=== PATIENT | male | born 1995 | race Caucasian/White ===

== ENCOUNTER 2016-08-06 22:41 | Observation (INO) | payer OTHER ==
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
[2016-08-06] MEDS ORDERED: fentaNYL 100 MCG/2 ML INJ ONE ×2 (22:53)
[2016-08-06] MEDS ORDERED: fentaNYL 100 MCG/2 ML INJ IVP ONE (22:57)
[2016-08-06] MEDS ORDERED: ceFAZolin 2 GM/DEXTROSE 100 ML IV ONE (22:57)
[2016-08-06] MEDS ORDERED: NS 1,000 ML IV ONE (22:57)
[2016-08-06] MEDS ORDERED: ONDANSETRON 4 MG/2 ML VIAL IVP ONE (22:57)
[2016-08-06] MEDS ORDERED: LORazepam 2 MG/ML INJ ONE (23:05)
[2016-08-06 23:07] LABS: % IMMATURE GRANULYOCYTES 0.5 % (0.0-1.1); ABSOLUTE IMMATURE GRANULOCYTES 0.05 10^3/uL (0.00-0.10); ADD DIFF? NO; ADD MORPH? NO; ADD SCAN? NO; ATYPICAL LYMPHOCYTE FLAG 30 (0-99); FRAGMENT RBC FLAG 0 (0-99); HEMATOCRIT 44.3 % (40.0-51.0); HEMOGLOBIN 15.6 g/dL (13.7-17.5); LEFT SHIFT FLG 0 (0-99); LIPEMIA HEMOLYSIS FLAG 90 (0-99); MEAN CELL HEMOGLOBIN 30.1 pg (27.9-34.1); MEAN CELL HEMOGLOBIN CONCENTR. 35.2 g/dL (32.4-36.7); MEAN CELL VOLUME 85.5 fL (81.5-99.8); MEAN PLATELET VOLUME 8.5 fL (8.7-11.7); PLATELET CLUMPS FLAG 0 (0-99); PLATELET COUNT 331 10^3/uL (150-400); RED BLOOD CELL COUNT 5.18 10^6/uL (4.40-6.38); RED CELL DISTRIBUTION WIDTH 12.3 % (11.5-15.2)
[2016-08-06] MEDS ORDERED: LORazepam 2 MG/ML INJ IVP ONE (23:07)
[2016-08-06 23:17] LABS: ANION GAP 18 mEq/L (8-16); CALCIUM 10.2 mg/dL (8.5-10.4); CARBON DIOXIDE 20 mEq/l (22-31); CHLORIDE 106 mEq/L (97-110); ETHANOL SERUM 214 mg/dL (0-10); GLOMERULAR FILTRATION RATE > 60; GLUCOSE 102 mg/dL (70-100); POTASSIUM 4.2 mEq/L (3.5-5.2); SODIUM 144 mEq/L (134-144)
[2016-08-06] MEDS ORDERED: HYDROmorphONE/DILAUDID 1 MG/ML SYR IVP ONE (23:25)
[2016-08-06] MEDS ORDERED: HYDROmorphONE/DILAUDID 1 MG/ML SYR ONE (23:37)
[2016-08-07] MEDS ORDERED: IOPAMIDOL (ISOVUE-300) 100 ML BTL IV ONE (00:01)
[2016-08-07] MEDS ORDERED: AMPICILLIN/SULBACTAM 3 GM in NS 100 ML IV ONE (00:02)
[2016-08-07] MEDS ORDERED: HYDROmorphONE/DILAUDID 1 MG/ML SYR ONE (00:12)
[2016-08-07] MEDS ORDERED: HYDROmorphONE/DILAUDID 1 MG/ML SYR IVP ONE (00:15)
[2016-08-07] MEDS ORDERED: ONDANSETRON 4 MG/2 ML VIAL IVP PRN (00:31)
[2016-08-07] MEDS ORDERED: DIAZEPAM 5 MG TAB PO PRN (00:31)
[2016-08-07] MEDS ORDERED: NS 1,000 ML IV SCH (00:45)
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
[2016-08-07] MEDS: HYDROmorphONE/DILAUDID 1 MG/ML SYR IVP PRN ×3 (02:40→07:25)
[2016-08-07] MEDS: DIAZEPAM 10 MG/2 ML SYR IVP PRN ×3 (02:42→13:47)
[2016-08-07] MEDS: PANTOPRAZOLE SODIUM 40 MG in NS 100 ML IV SCH ×2 (03:22→09:17)
[2016-08-07] MEDS: KETOROLAC 30 MG/1 ML SDV IVP SCH ×3 (05:28→20:08)
[2016-08-07] MEDS: ACETAMINOPHEN 500 MG TAB PO SCH ×3 (05:28→13:15)
[2016-08-07] MEDS ORDERED: BUPIVACAINE/EPI 0.5% 30 ML SDV ONE (06:06)
[2016-08-07] MEDS ORDERED: AMPICILLIN/SULBACTAM 3 GM in NS 50 ML IV SCH (08:00)
[2016-08-07] MEDS: AMPICILLIN/SULBACTAM 3 GM in NS 100 ML IV SCH ×3 (08:10→20:07)
--- NOTE | 2016-08-07 08:40 | TRAUMAPN ---
Assessment/Plan: 08/07/2016 Assessment: No new complaints CT Chest, abdomen and pelvis do not show any acute injury C-spine cleared Plan: surgery for mandibular fracture this morning Subjective: C/o jaw pain No new information as to events of last evening Objective: Vital Signs Temp Pulse Resp BP Pulse Ox 36.9 C 77 16 157/82 H 96 08/07/16 07:47 08/07/16 07:47 08/07/16 07:47 08/07/16 07:47 08/07/16 07:47 08/06/16 08/07/16 08/08/16 05:59 05:59 05:59 Intake Total 1000 100 Output Total 400 Balance 600 100 - C-Spine Clearance Cervical Spine Cleared: Yes Provider who Cleared Cervical Spine: Saurav Time Cervical Spine was Cleared: 08:30 Physical Exam - Physical Exam General Appearance: alert, moderate distress EENT: other (jaw with obvious fracture anteriorly at right parasymphsis area ( as well as at left ramus)) Neck: non-tender, full range of motion, supple, normal inspection Respiratory: chest non-tender, lungs clear, normal breath sounds Cardiac/Chest: regular rate, rhythm Neuro/Psych: no motor/sensory deficits, alert, normal mood/affect, oriented x 3 (15)
[2016-08-07] MEDS ORDERED: MIDAZOLAM 2 MG/2 ML VIAL ONE ×3 (09:52→13:18)
[2016-08-07] MEDS ORDERED: PROPOFOL 200 MG/20 ML VIAL ONE (09:58)
[2016-08-07] MEDS ORDERED: fentaNYL 250 MCG/5 ML INJ ONE (09:58)
[2016-08-07] MEDS ORDERED: LIDOCAINE 2% 100 MG/5 ML SYR ONE (09:59)
[2016-08-07] MEDS ORDERED: GLYCOPYRROLATE 0.2 MG/1 ML VIAL ONE (09:59)
[2016-08-07] MEDS ORDERED: SUGAMMADEX SODIUM 200 MG/2 ML VIAL IVP ONE (11:58)
[2016-08-07] MEDS ORDERED: morphINE 10 MG/0.5 ML UDSYR PO PRN (12:42)
--- NOTE | 2016-08-07 12:46 | POSTOPPROG ---
Post Op Note Date of Operation: 08/07/16 Surgeon: Christin Nelson Medical Assistant Secretary: none Anesthesiologist: Diego Nathan Anesthesia: GET(General Endotracheal) Pre-op Diagnosis: mandibular symphyseal and left ramus fracture Post-op Diagnosis: same Indication: malocclusion Procedure: ORIF of mandibular symphyseal fx, MMF of left ramus fx Findings: good reduction of fx segments, occlusion stable and reproducible Inf/Abcess present in the surg proc area at time of surgery?: No Depth: Deep Incisional (Fascial) EBL: Minimal Total fluids administered: see anesthesia record Complications: none Specimen(s): none
[2016-08-07] MEDS ORDERED: fentaNYL 100 MCG/2 ML INJ ONE (12:48)
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
[2016-08-07] MEDS ORDERED: ACETAMINOPHEN 650 MG/20.3 ML UDCUP PO PRN (17:47)
[2016-08-07] MEDS: CHLORHEXIDINE GLUCONATE 15 ML UDL PO SCH ×2 (17:54→20:07)
[2016-08-07] MEDS ORDERED: *PHM DO NOT USE-LORazepam 1 MG/ML IV NEWBORN SYR IV SCH (18:30)
[2016-08-07] MEDS ORDERED: HYDROmorphONE/DILAUDID 1 MG/ML SYR IVP PRN (18:31)
--- NOTE | 2016-08-07 18:38 | SOAPPROG ---
SOAP Progress Note Assessment/Plan: Assessment: 20 y M s/p ORIF of mandibular symphyseal fx, MMF L ramus fx, surgical site stable. Discussed pain regimen with stepfather and mother, given that stepfather is an anesthesiologist who specializes in pain management, consensus reached on new pain regimen. Plan: -1 mg lorazepam q6h -scheduled 30 mg toradol q6h, 650 mg tylenol q6h, 10 mg morphine q4h -1 mg dilaudid q4h breakthrough only -continue pureed diet -continue unasyn -wire cutters at bedside -plan for d/c tomorrow 08/07/16 18:33 Subjective: pain reported 02/07, otherwise nursing staff reports that pt has been tolerating PO intake, fell asleep this afternoon Objective: Vital Signs Temp Pulse Resp BP Pulse Ox 35.9 C L 85 18 133/80 H 96 08/07/16 15:52 08/07/16 15:52 08/07/16 15:52 08/07/16 15:52 08/07/16 15:52 08/06/16 08/07/16 08/08/16 05:59 05:59 05:59 Intake Total 1000 2800 Output Total 400 5 Balance 600 2795 mild lower facial edema as expected, CN II-XII grossly intact except R V3 hypoesthesia, MMF stable ICD10 Worksheet Patient Problems: Problems Problem Status Onset Jaw fracture Acute Appendicitis Acute Hypoxia Acute Pneumonia Acute
[2016-08-07] MEDS ORDERED: HYDROmorphONE/DILAUDID 2 MG TAB PO PRN (18:40)
[2016-08-07] MEDS ORDERED: LORazepam 2 MG/ML INJ ONE (18:58)
[2016-08-07] MEDS: ACETAMINOPHEN 650 MG/20.3 ML UDCUP PO SCH (18:59)
[2016-08-07] MEDS: morphINE 10 MG/0.5 ML UDSYR PO SCH ×2 (20:08→22:35)
[2016-08-08] MEDS ORDERED: LORazepam 2 MG/ML INJ IVP SCH
[2016-08-08] MEDS: KETOROLAC 30 MG/1 ML SDV IVP SCH ×3 (00:05→12:04)
[2016-08-08] MEDS: ACETAMINOPHEN 650 MG/20.3 ML UDCUP PO SCH ×3 (00:05→12:00)
[2016-08-08] MEDS: LORazepam 2 MG/ML INJ IVP SCH ×3 (00:06→12:02)
[2016-08-08] MEDS: AMPICILLIN/SULBACTAM 3 GM in NS 100 ML IV SCH ×3 (02:29→13:56)
[2016-08-08] MEDS: morphINE 10 MG/0.5 ML UDSYR PO SCH ×3 (02:29→10:01)
[2016-08-08] MEDS ORDERED: HYDROmorphONE/DILAUDID 2 MG TAB ONE (08:11)
--- NOTE | 2016-08-08 08:14 | SOAPPROG ---
SOAP Progress Note Assessment/Plan: Assessment: 20 y M s/p ORIF of mandibular symphyseal fx, MMF L ramus fx, POD 1, surgical site stable. Pain regimen modified yesterday with improvement in symptoms, will adjust accordingly. Plan: -continue 1 mg lorazepam q6h -continue scheduled 30 mg toradol q6h, 650 mg tylenol q6h, 10 mg morphine q4h -will change 1 mg dilaudid q4h prn to scheduled, discussed with nursing staff to crush tab, given MMF -continue pureed diet -continue unasyn -continue periogard rinse bid -wire cutters at bedside -plan for d/c once pain regimen finalized 08/08/16 08:18 Subjective: pt states that scheduled ativan and morphine helps greatly with jaw discomfort, tylenol and toradol helps with neck soreness, dilaudid not crushed appropriately and did not seem to help with symptoms, able to tolerate PO intake Objective: Vital Signs Temp Pulse Resp BP Pulse Ox 36.3 C 59 L 12 99/46 L 93 08/08/16 03:21 08/08/16 03:21 08/08/16 03:21 08/08/16 03:21 08/08/16 03:21 08/07/16 08/08/16 08/09/16 05:59 05:59 05:59 Intake Total 1000 3200 Output Total 400 5 Balance 600 3195 mild increase in lower facial edema, as expected post-op, occlusion stable and unchanged ICD10 Worksheet Patient Problems: Problems Problem Status Onset Jaw fracture Acute Appendicitis Acute Hypoxia Acute Pneumonia Acute
[2016-08-08] MEDS: HYDROmorphONE/DILAUDID 2 MG TAB PO SCH ×2 (08:15→11:06)
[2016-08-08] MEDS: CHLORHEXIDINE GLUCONATE 15 ML UDL PO SCH (08:18)
[2016-08-08 08:28] VITALS: BP 127/82; PULSE 75; RESP 16; TEMP 96.8; O2SAT 96
[2016-08-08] MEDS: PANTOPRAZOLE SODIUM 40 MG in NS 100 ML IV SCH (09:26)
[2016-08-08] MEDS ORDERED: morphINE 10 MG/0.5 ML UDSYR PO SCH ×2 (10:41)
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
== END 2016-08-08 15:36 | disposition home or self-care (01) ==
LOC: INTOOBSV 08-07 00:26 → F3N 08-07 01:57
PROVIDERS: ADMIT Dentist Oral and Maxillofacial Surgery; ATTEND Dentist Oral and Maxillofacial Surgery
PROC: 0NSV04Z Reposition Left Mandible with Internal Fixation Device, Open Approach (ICD-10-PCS; principal; 2016-08-07 10:00)
PROC: 2W31X9Z Immobilization of Face using Wire (ICD-10-PCS; principal; 2016-08-07 10:00)
DX: S02.642B Fracture of ramus of left mandible, initial encounter for open fracture (principal); S02.66XB Fracture of symphysis of mandible, initial encounter for open fracture; F10.129 Alcohol abuse with intoxication, unspecified; W10.9XXA Fall (on) (from) unspecified stairs and steps, initial encounter; Y04.0XXA Assault by unarmed brawl or fight, initial encounter; Y01.XXXA Assault by pushing from high place, initial encounter; Y92.320 Baseball field as the place of occurrence of the external cause
CPT/HCPCS: 21470; 70450; 70486; 71010; 71260; 72125; 74177; 96361; 96374; 96375; 99285; G0378; C1713; G0480; J0295; J0690; J1170; J1885; J2001; J2060; J2250; J2704; J3010; L0172; Q9967

== ENCOUNTER 2016-08-11 09:12 | Emergency (ER) | payer OTHER ==
--- NOTE | 2016-08-11 09:43 | EDPHY ---
HPI/HX/ROS/PE/MDM Narrative: CHIEF COMPLAINT: Fever, sore throat. HPI: The patient is a 20-year-old male status post mandible fracture repair [address] Nelson who presents with fever that began yesterday. 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 His jaw is wired shut and he has been on a liquid-only diet. He has been compliant with his antibiotics. He denies vomiting, diarrhea, or other complaints. REVIEW OF SYSTEMS: Aside from elements discussed in the HPI, a comprehensive 10-point review of systems was reviewed and is negative. PMH: Jaw surgery, hand surgery, pneumonia. SOCIAL HISTORY: [employer] Student. PHYSICAL EXAM: General: Patient is alert, in no acute distress. ENT: Eyes are normal to inspection. ENT inspection normal. Neck: Normal inspection. Full range of motion. Respiratory: No respiratory distress. Breath sounds normal bilaterally. Cardiovascular: Regular rate and rhythm. Strong peripheral pulses. Abdomen: The abdomen is nontender to palpation. There are no peritoneal signs. There are normal bowel sounds. Back: Normal to inspection. No tenderness to palpation. Skin: Normal color. No rash. Warm and dry. Extremities: Normal appearance. Full range of motion. Neuro: Oriented x3. Normal motor function. Normal sensory function. Portions of this note were transcribed by an ED scribe. I personally performed the history, physical exam, and medical decision making; and confirm the accuracy of the information in the transcribed note. ED Course: 20-year-old male status post mandible fracture repair 4 days ago presents with fever since yesterday. He has associated sore throat but does have a history of recurrent strep C. He has no other complaints at this time. It is difficult to perform a pharyngeal exam as his jaw is wired shut. He has been taking his antibiotics as prescribed. An IV was established and labs ordered. Chest x-ray ordered. 1L IV saline administered along with 1gm IV Ceftriaxone. I reviewed the patient's laboratory studies. WBC elevated at 14.54. I independently reviewed the patient's chest x-ray on the PACS system. My interpretation: left lower lobe pneumonia. Please see Imaging section for radiologist report. I discussed these results with the patient. I offered chest CT to further elucidate the pneumonia but they declined. He will be discharged with antibiotics. - Data Points Imaging Results: Imaging Impressions Chest X-Ray 08/11/16 10:17 Impression: Subtle lower lobe infiltrate side indeterminate. CT might be helpful , if clinically indicated. Laboratory Results: Laboratory Results 08/11/16 10:05 08/11/16 10:05 08/11/16 08/11/16 10:05 10:05 WBC 14.54 10^3/uL H 10^3/uL (3.80-9.50) RBC 5.25 10^6/uL 10^6/uL (4.40-6.38) Hgb 16.1 g/dL g/dL (13.7-17.5) Hct 46.9 % % (40.0-51.0) MCV 89.3 fL fL (81.5-99.8) MCH 30.7 pg pg (27.9-34.1) MCHC 34.3 g/dL g/dL (32.4-36.7) RDW 12.1 % % (11.5-15.2) Plt Count 267 10^3/uL 10^3/uL (150-400) MPV 8.6 fL L fL (8.7-11.7) Neut % (Auto) 79.9 % H % (39.3-74.2) Lymph % (Auto) 9.3 % L % (15.0-45.0) [place] % (Auto) 9.7 % % (4.5-13.0) Eos % (Auto) 0.5 % L % (0.6-7.6) Baso % (Auto) 0.2 % L % (0.3-1.7) Nucleat RBC Rel Count 0.0 % % (0.0-0.2) Absolute Neuts (auto) 11.62 10^3/uL H 10^3/uL (1.70-6.50) Absolute Lymphs (auto) 1.35 10^3/uL 10^3/uL (1.00-3.00) Absolute Monos (auto) 1.41 10^3/uL H 10^3/uL (0.30-0.80) Absolute Eos (auto) 0.07 10^3/uL 10^3/uL (0.03-0.40) Absolute Basos (auto) 0.03 10^3/uL 10^3/uL (0.02-0.10) Absolute Nucleated RBC 0.00 10^3/uL 10^3/uL (0-0.01) Immature Gran % 0.4 % % (0.0-1.1) Immature Gran # 0.06 10^3/uL 10^3/uL (0.00-0.10) Sodium 139 mEq/L mEq/L (134-144) Potassium 4.9 mEq/L mEq/L (3.5-5.2) Chloride 100 mEq/L mEq/L (97-110) Carbon Dioxide 27 mEq/l mEq/l (22-31) Anion Gap 12 mEq/L mEq/L (8-16) BUN 9 mg/dL mg/dL (7-23) Creatinine 0.9 mg/dL mg/dL (0.7-1.3) Estimated GFR > 60 Glucose 89 mg/dL mg/dL (70-100) Calcium 9.9 mg/dL mg/dL (8.5-10.4) Medications Given: Discontinued Medications Acetaminophen (Tylenol 650/20.3ml Oral Liquid) 1,000 mg PO EDNOW ONE Stop: 08/11/16 11:11 Last Admin: 08/11/16 11:10 Dose: 1,000 mg Sodium Chloride (Ns) 1,000 mls @ 0 mls/hr IV ONCE ONE PRN Reason: Wide Open Stop: 08/11/16 10:18 Last Admin: 08/11/16 10:26 Dose: 1,000 mls Ceftriaxone Sodium/Dextrose (Rocephin 1 Gm (Premix)) 50 mls @ 100 mls/hr IV EDNOW ONE PRN Reason: Protocol Stop: 08/11/16 11:23 Last Admin: 08/11/16 11:05 Dose: 50 mls General Time Seen by Provider: 08/11/16 09:42 Initial Vital Signs: Initial Vital Signs Temperature (C) 36.8 C 08/11/16 09:17 Heart Rate 95 08/11/16 09:17 Respiratory Rate 18 08/11/16 09:17 Blood Pressure 131/67 H 08/11/16 09:17 O2 Sat (%) 97 08/11/16 09:17 O2 Delivery Mode Room Air Allergies/Adverse Reactions: prednisone Allergy (Severe, Verified 08/11/16 09:16) Other-Enter Comments Home Medications: Medication Instructions Recorded Amoxicillin [Amoxil Susp (*)] 500 mg PO Q8H #175 ml 08/08/16 Chlorhexidine Gluconate 15 ml BID #473 mouthwash 08/08/16 LORazepam [Lorazepam Intensol] 1 mg PO Q6H PRN #20 ml 08/08/16 morphINE [Roxanol 10 mg/0.5 ml 15 mg PO Q4H PRN #45 ml MDD 4.5 ml 08/08/16 oral soln (*)] Azithromycin Oral Liquid 250 mg PO DAILY 5 Days 08/11/16 [Zithromax Oral Liquid] Departure - Departure Disposition: Home, Routine, Self-Care Clinical Impression: Pneumonia Qualifiers: Pneumonia type: due to unspecified organism Laterality: left Lung location: lower lobe of lung Qualified Code(s): J18.1 - Lobar pneumonia, unspecified organism Condition: Good Instructions: Pneumonia (ED) Additional Instructions: Take the antibiotic as prescribed. Return to the emergency department if you experience any serious worsening of condition. Referrals: [facility] [Clinic] - As per Instructions Stand Alone Forms: Statement of Treatment Prescriptions: Azithromycin Oral Liquid [Zithromax Oral Liquid] 250 mg PO DAILY 5 Days Report Scribed for: Beto Bautista Report Scribed by: Tien Peng Date of Report: 08/11/16 Time of Report: 10:06
[2016-08-11] MEDS ORDERED: NS 1,000 ML IV ONE (10:17)
[2016-08-11 10:24] LABS: % IMMATURE GRANULYOCYTES 0.4 % (0.0-1.1); ABSOLUTE IMMATURE GRANULOCYTES 0.06 10^3/uL (0.00-0.10); ADD DIFF? NO; ADD MORPH? NO; ADD SCAN? NO; ATYPICAL LYMPHOCYTE FLAG 0 (0-99); FRAGMENT RBC FLAG 0 (0-99); HEMATOCRIT 46.9 % (40.0-51.0); HEMOGLOBIN 16.1 g/dL (13.7-17.5); LEFT SHIFT FLG 10 (0-99); LIPEMIA HEMOLYSIS FLAG 90 (0-99); MEAN CELL HEMOGLOBIN 30.7 pg (27.9-34.1); MEAN CELL HEMOGLOBIN CONCENTR. 34.3 g/dL (32.4-36.7); MEAN CELL VOLUME 89.3 fL (81.5-99.8); MEAN PLATELET VOLUME 8.6 fL (8.7-11.7); PLATELET CLUMPS FLAG 20 (0-99); PLATELET COUNT 267 10^3/uL (150-400); RED BLOOD CELL COUNT 5.25 10^6/uL (4.40-6.38); RED CELL DISTRIBUTION WIDTH 12.1 % (11.5-15.2)
[2016-08-11 10:40] LABS: ANION GAP 12 mEq/L (8-16); CALCIUM 9.9 mg/dL (8.5-10.4); CARBON DIOXIDE 27 mEq/l (22-31); CHLORIDE 100 mEq/L (97-110); CREATININE 0.9 mg/dL (0.7-1.3); GLOMERULAR FILTRATION RATE > 60; GLUCOSE 89 mg/dL (70-100); POTASSIUM 4.9 mEq/L (3.5-5.2); SODIUM 139 mEq/L (134-144)
[2016-08-11] MEDS ORDERED: ACETAMINOPHEN 650 MG/20.3 ML UDCUP PO PRN (11:05)
[2016-08-11] MEDS ORDERED: ACETAMINOPHEN 650 MG/20.3 ML UDCUP PO ONE (11:10)
[2016-08-11 11:23] VITALS: BP 136/70; PULSE 89; RESP 16; TEMP 99.1; O2SAT 96
== END 2016-08-11 11:37 | disposition home or self-care (01) ==
DX: J18.9 Pneumonia, unspecified organism (principal)
CPT/HCPCS: 96365; J0696

== ENCOUNTER 2016-08-11 22:56 | Emergency (ER) | payer OTHER ==
[2016-08-11 23:11] VITALS: RESP 16
--- NOTE | 2016-08-11 23:44 | EDPHY ---
H & P Stated Complaint: fever, pain post durgery on Monday Time Seen by Provider: 08/11/16 23:22 HPI/ROS: Chief Complaint: Fever HPI: 20-year-old male who is 5 days status post mandible fracture repair presenting with 2 days of fever. Patient was seen here earlier today and diagnosed with pneumonia. He was started on azithromycin. Patient has been having continued fevers to 103-104 despite taking ibuprofen and acetaminophen. He has taken 800 mg of ibuprofen every 8 hours. Has had a slight cough but nonproductive. Also has bilateral sore throat but is able to swallow his secretions and his liquid diet medicines without difficulty. No chest pain or shortness of breath. No abdominal pain. No urinary symptoms. No nausea or vomiting. Mom is bring him back in because he has continued to have fevers despite the medications and the antibiotics he started today. ROS: 10 point Review of Systems is negative except as noted in the HPI. PMH: Mandible fracture Social History: No smoking, occasional alcohol, no recreational drug use Family History: non-contributory Physical Exam: Gen: Awake, Alert, No Distress HEENT: Nose: no rhinorrhea Eyes: PERRLA, EOMI Mouth: Moist mucosa otherwise on a able to evaluate secondary to the patient's mandible being wired shut Neck: Supple, no JVD, mild symmetric lymphadenopathy without any submandibular masses or neck masses Chest: nontender, lungs clear to auscultation Heart: S1, S2 normal, no murmur Abd: Soft, non-tender, no guarding Back: no CVA tenderness, no midline tenderness Ext: no edema, non-tender Skin: no rash Neuro: CN II-XII intact, Sensation grossly intact, Strength 5/5 in bilateral upper and lower extremities - Personal History Current Tetanus/Diphtheria Vaccine: Yes Current Tetanus Diphtheria and Acellular Pertussis (TDAP): Yes - Medical/Surgical History Hx Asthma: No Hx Chronic Respiratory Disease: No Hx Diabetes: No Hx Cardiac Disease: No Hx Renal Disease: No Hx Cirrhosis: No Hx Alcoholism: No Hx HIV/AIDS: No Hx Splenectomy or Spleen Trauma: No Other PMH: med hx-anxiety. surg-bilat hand, jaw surgery - Social History Smoking Status: Never smoked Constitutional: Initial Vital Signs Temperature (C) 38.2 C 08/11/16 23:09 Heart Rate 112 H 08/11/16 23:09 Respiratory Rate 16 04/13/17 23:09 Blood Pressure 153/90 H 08/11/16 23:09 O2 Sat (%) 92 08/11/16 23:09 O2 Delivery Mode Room Air Allergies/Adverse Reactions: prednisone Allergy (Severe, Verified 08/11/16 23:09) Other-Enter Comments Home Medications: Medication Instructions Recorded Amoxicillin [Amoxil Susp (*)] 500 mg PO Q8H #175 ml 08/08/16 Chlorhexidine Gluconate 15 ml BID #473 mouthwash 08/08/16 LORazepam [Lorazepam Intensol] 1 mg PO Q6H PRN #20 ml 08/08/16 morphINE [Roxanol 10 mg/0.5 ml 15 mg PO Q4H PRN #45 ml MDD 4.5 ml 08/08/16 oral soln (*)] Azithromycin Oral Liquid 250 mg PO DAILY 5 Days 08/11/16 [Zithromax Oral Liquid] Medical Decision Making ED Course/Re-evaluation: The patient has defervesced to 36.8 from the medications he took at home. He is otherwise very well appearing. I suspect that given his respiratory status lack of cough and the very small finding on chest x-ray earlier that his symptoms are more likely secondary to a viral process. I am unable to evaluate his oropharynx but I do not find any exterior findings or history suggesting had a large abscess. He will continue taking the azithromycin. I have suggested that they alternate ibuprofen 400 mg with acetaminophen to stabilize his antipyretics. Will follow up in several days for re-evaluation. They are asking to go home at this time. Departure - Departure Disposition: Home, Routine, Self-Care Clinical Impression: Fever Condition: Good Instructions: Fever in Adults (ED), Viral Syndrome (ED) Additional Instructions: Please take your full course of antibiotics. Alternate acetaminophen and ibuprofen every 4 hours for fever, chills, aches, pains. Try to limit your narcotic use for your pain. Return to the emergency department for persistent uncontrolled fevers, nausea, vomiting, shortness of breath, cough, or any other concerns. Referrals: NONE *PRIMARY CARE P,. [Primary Care Provider] - As per Instructions
[2016-08-11 23:46] VITALS: BP 120/59; PULSE 98; TEMP 98.2; O2SAT 93
== END 2016-08-11 23:53 | disposition home or self-care (01) ==
DX: R50.9 Fever, unspecified (principal)

== ENCOUNTER 2017-10-10 01:35 | Inpatient (IN) | payer OTHER ==
[2017-10-10] MEDS ORDERED: LORazepam 2 MG/ML INJ ONE (01:43)
[2017-10-10] MEDS ORDERED: HALOPERIDOL LACT 5 MG/ML INJ ONE (02:12)
[2017-10-10] MEDS ORDERED: IBUPROFEN 200 MG TAB PO PRN (16:45)
[2017-10-10] MEDS ORDERED: LORazepam 0.5 MG TAB PO PRN (20:10)
--- NOTE | 2017-10-10 22:31 | ASMTTCLDSP ---
TLC Discharge Disposition Disposition: Answers: Admit Was patient given the Answers: Yes Inpatient Behavioral Health Prohibited Belongings List while in the ED? For inpatient admission, the following Sammy Reddy MD psychiatrist agreed to accept patient for admission to Behavioral [facility] Type of Hold: Answers: M1/72-hour Hold Hold initiated by: Answers: Police Date Signed: 10/10/2017 03:39 PM Electronically Signed By:Suzanne Cordova
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
--- NOTE | 2017-10-11 02:53 | EDPHY ---
H & P Stated Complaint: PT TOOK HANDFUL OF PILLS, ETOH, M-1 HOLD Time Seen by Provider: 10/10/17 02:00 HPI/ROS: HPI CHIEF COMPLAINT: Alcohol intoxication, cocaine abuse, agitated behavior, M1 hold by police HISTORY OF PRESENT ILLNESS: Patient is a 22-year-old male, presents emergency room by EMS and police for acute agitation, alcohol intoxication, cocaine use and suicidal ideation. He is on M1 hold by police. Past Medical History: Unknown medical Past Surgical History: Unknown surgical history Social History: Alcohol this evening, cocaine Family History: Noncontributory ROS REVIEW OF SYSTEMS: A comprehensive 10 point review of systems is otherwise negative aside from elements mentioned in the history of present illness. Exam Constitutional agitated, triage nursing summary reviewed, vital signs reviewed , awake/alert. Eyes normal conjunctivae and sclera, EOMI, PERRLA. HENT normal inspection, atraumatic, moist mucus membranes, no epistaxis, neck supple/ no meningismus, no raccoon eyes. Respiratory clear to auscultation bilaterally, normal breath sounds, no respiratory distress, no wheezing. Cardiovascular rate normal, regular rhythm, no murmur, no edema, distal pulses normal. Gastrointestinal soft, non-tender, no rebound, no guarding, normal bowel sounds, no distension, no pulsatile mass. Genitourinary no CVA tenderness. Musculoskeletal no midline vertebral tenderness, full range of motion, no calf swelling, no tenderness of extremities, no meningismus, good pulses, neurovascularly intact. Skin pink, warm, & dry, no rash, skin atraumatic. Neurologic awake, alert and oriented x 3, AAOx3, moves all 4 extremities equally, motor intact, sensory intact, CN II-XII intact, normal cerebellar, normal vision, normal speech. Psychiatric normal mood/affect. Heme/Lymph/Immune no lymphadenopathy. Differential Diagnosis: Includes but is not limited to in a particular order acute agitation, drug intoxication, alcohol intoxication, M1 hold by police Medical Decision Making: Plan for this patient IV establishment he will need Ativan 2 mg IV for sedation given how agitated he is here in the emergency room. Additionally will check blood work drug screen. He is on M1 hold. He will need mental health evaluation after he tacho. Re-evaluation: 0512AM: Patient required 2 mg IV Ativan and 5 mg IV Haldol for sedation to control his aggressive and agitated behavior in the emergency room. Blood work has been reviewed. It is noted the patient's alcohol level was elevated. Serum alcohol 352. Patient signed over to Dr. Lainez 7am shift change, re-eval once sober. Source: Patient, EMS - Personal History Current Tetanus/Diphtheria Vaccine: Yes Current Tetanus Diphtheria and Acellular Pertussis (TDAP): Yes - Medical/Surgical History Hx Asthma: No Hx Chronic Respiratory Disease: No Hx Diabetes: No Hx Cardiac Disease: No Hx Renal Disease: No Hx Cirrhosis: No Hx Alcoholism: No Hx HIV/AIDS: No Hx Splenectomy or Spleen Trauma: No Other PMH: med hx-anxiety. surg-bilat hand, jaw surgery - Social History Smoking Status: Never smoked Constitutional: Initial Vital Signs Temperature (C) 37.0 C 10/10/17 01:35 Heart Rate 130 H 10/10/17 01:35 Respiratory Rate 18 10/10/17 01:35 Blood Pressure 122/87 H 10/10/17 01:35 O2 Sat (%) 92 10/10/17 01:35 O2 Delivery Mode Room Air Allergies/Adverse Reactions: prednisone Allergy (Severe, Verified 08/11/16 23:09) Other-Enter Comments Home Medications: Medication Instructions Recorded Amoxicillin/Clavulanate Pot 875 mg PO BID 10/10/17 [Augmentin 875 MG TAB (*)] Ibuprofen [Advil] 200 mg PO DAILY PRN 10/10/17 Departure - Departure Disposition: Home, Routine, Self-Care Clinical Impression: Alcoholic intoxication Qualifiers: Complication of substance-induced condition: uncomplicated Qualified Code(s): F10.920 - Alcohol use, unspecified with intoxication, uncomplicated Condition: Good Referrals: NONE *PRIMARY CARE P,. [Primary Care Provider] - As per Instructions
[2017-10-11 06:53] VITALS: BP 136/85
[2017-10-11] MEDS ORDERED: NICOTINE POLACRILEX 2 MG GUM B PRN (07:24)
[2017-10-11] MEDS ORDERED: MAGNESIUM HYDROXIDE 30 ML UDCUP PO PRN (07:24)
[2017-10-11] MEDS ORDERED: MAG HYDROX/AL HYDROX/SIMETH 30 ML UDCUP PO PRN (07:24)
[2017-10-11] MEDS ORDERED: ACETAMINOPHEN 325 MG TAB PO PRN (07:24)
[2017-10-11] MEDS: AMOXICILLIN/CLAVULANATE POT 875/125 MG TAB PO SCH ×2 (07:38→08:18)
--- NOTE | 2017-10-11 11:21 | ASMTBHDC ---
Notes Note: Notes: The patient has agreed to follow up and make an intake appointment with Dr. Islas once he returns home to [place], due to short stay, and CC unable to confirm discharge appointment. Date Signed: 10/11/2017 11:20 AM Electronically Signed By:Elizabeth Patterson
--- NOTE | 2017-10-11 11:23 | ASMTBHMTP ---
Master Treatment Plan Master Treatment Plan Answers: Depressed Mood with for: Suicidal Ideation Date: 10/10/2017 Diagnosis on Admission: Major Depressive Disoder, single episode, severe 296.23 (F.32.2) Expected length of stay: 10/11/2017 Reason for admission: Notes: The patient stated, "I was intoxicated, my BAL was .38, I've never had those thoughts before. I had an argument with my girlfriend and I think I was just trying to get attention." The patient denied depression, SI, HI, A/VH, reporting a 0/10. He rated himself a 2/10 for anxiety which he associated with hospitalization. Patient's stated presenting problems: Notes: The patient stated, "I had a stressful semester at ; it was the night before I was flying home to [place]. I do not have substance abuse issues, I just need to be with family and be outside rather than partying and drinking with friends." Patient's goals for treatment: Notes: The patient reported benefiting from a "structured lifestyle, starting a job," that he has lined up for the summer, "spending time with family and in the outdoors." The patient's stated goal is to discharge into his step father's, Dr. Vamshi Recio, [facility]. Patient's strengths: Notes: The patient demonstrated strong insight; he reported being "outgoing, a leader, street smart, motivated, and goal oriented." Identify supports outside of hospital: Notes: The patient is supported by his "family, friends, mentors/teachers, and his significant other." Discharge criteria: Notes: The patient was previously under the care of Dr. Islas, a family therapist, during high school and his parents divorce. Initial disposition plan/considerations: Notes: In consultation with the step father of the patient, Dr. Vamshi Recio, and the [facility] Nurse Practitioner, Eder Larios, both agreed that the patient is able to discharge home with his step father. They will be returning to [place] where the patient will seek outpatient care. Master Treatment Plan Required Signatures Psychiatrist signature: Answers: Eder Larios, DIGNAP: RN on-shift signature: Answers: RN: Patient signature: Answers: Patient: Date Signed: 10/11/2017 11:19 AM Electronically Signed By:Elizabeth Patterson
--- NOTE | 2017-10-11 12:40 | GDS ---
[f rep st] DISCHARGE SUMMARY REASON FOR ADMISSION: Per ED note dated 10/10/2017, at 0200, patient presented to the emergency room by EMS and police for acute agitation, alcohol intoxication, cocaine use, and suicidal ideation. He was on an M-1 hold by police. Patient was admitted involuntarily and is on an M-1 hold due to being a danger to self. ADMITTING DIAGNOSIS: Alcohol intoxication. ADMISSION PHYSICAL EXAM: Patient was seen in the ED on 10/10/2017. REVIEW OF SYSTEMS: A comprehensive 10-point review of systems is otherwise negative, aside from elements mentioned in the History of Present Illness. For further information regarding the assessment, please refer to the ED note dated 2017, at 0252. ADMISSION LABS: Blood work was reviewed by the ED physician. It is noted the patient's alcohol level was elevated. Serum alcohol 352. HOSPITAL COURSE: The most prominent symptoms and behaviors while the patient was here were the following: Patient presented with mild anxiety. Target symptoms during the course of the patient's hospitalization were mild anxiety. The treatment modalities utilized were as follows: Milieu and group therapy. No medications were started during the time of the patient's visit. Patient has improved considerably with no sign of psychiatric symptoms and no psychiatric symptoms expressed. Patient reports he has improved since admission , states to be in stable condition, feels safe to discharge and contract for safety. The patient's response to treatment was good. There were no adverse or unexpected results of treatment. The patient was safe throughout his stay, active in treatment, engaged in groups, and was appropriate with staff. The treatment team consensus is the patient is in stable condition and is safe to discharge today. CONDITION AT DISCHARGE: Patient is in stable condition and is no longer a danger to self or others, and is not gravely disabled due to mental illness. Patient is no longer in need of inpatient level of care, and can be safely and effectively treated within the community. The patients level of risk at time of discharge is low based on the risk assessment below following this discharge summary. MSE: The patient is casually dressed and with good hygiene, and looks stated age. Patient is sitting, posture is upright, and position is relaxed. Patient appears awake, alert, and responds appropriately and reasonably during interview. Patient is engaged, relates well to interviewer, and emotional facial expression is appropriate to situation and changes appropriately with topic. Patient is cooperative, makes comfortable eye contact, and movements are voluntary, deliberate, coordinated, and smooth and even with no inappropriate movements. Patient makes laryngeal sounds effortlessly and shares conversation appropriately; pace of conversation is appropriate, and stream of talking is fluent; articulation is clear and understandable; word choice is effortless and appropriate for education level; completes sentences, occasionally pausing to think; rate and volume are appropriate for interview and setting. Patient reports mood as euthymic. Patients affect is stable with full variable range, congruent with mood, and appropriate to speech and circumstances. Patient has linear and logical thinking, with no loose associations, tangential thought, thought blocking, concrete thinking, or any other signs of formal thought disorder. Patient denies suicidal and homicidal ideation, and denies hallucinations and delusions. Patient appears to be a reliable historian with sound judgement and good insight into current condition. Patient has no apparent dysfunction in recent or remote memory noted , and no evidence of gross cognitive dysfunction noted at any point during the interview. DISCHARGE DIAGNOSIS: Alcohol intoxication, resolved. DISCHARGE MEDICATIONS: No psychotropic medications were prescribed. No prescriptions were written at time of discharge. DISPOSITION: Patient left hospital independently and voluntarily with his stepfather and plans to return to [place] with his stepfather later this evening. Stepfather was on the unit today and patient left with stepfather. FOLLOWUP: cruise coordinator reports the appropriate outpatient follow-up services have been established and outpatient appointments have been scheduled. The patient received written instructions with times and dates of outpatient follow-up appointments. The following follow-up recommendations were provided to the patient at discharge: Continue psychotropic medications as prescribed and attend appointments as scheduled. Report any side effects to a psychiatric outpatient provider, a primary care provider, or other health child care worker. Address any questions or problems concerning the psychotropic medications with a psychiatric outpatient provider, a primary care provider, or other health child care worker. Contact [facility] or [facility], or go to the nearest emergency room, if you are ever a danger to yourself/others, or unable to care for yourself. As soon as possible, establish a routine medication management treatment with a psychiatric provider, establish routine therapy appointments, and follow-up with a primary care provider. LEGAL COURSE: Patient arrived to the unit on an M-1 hold and was hospitalized involuntarily. Patient became voluntary during stay and discharged today independently and voluntarily. ATTITUDE AT TIME OF DISCHARGE: The patient's attitude was positive at time of discharge, and patient reports looking forward to discharging today and returning home to [place] with his step dad and his mom who is in [place] at this time. The patient reports he feels safe at discharge, is no longer a danger to himself or others, is in stable condition and contracts for safety. The patient states he plans to follow up with outpatient treatment, including potentially medication management and therapy when he returns to [place]. Patient reports he understands the information that has been provided to him during his stay regarding treatment options. Patient reports internal protective factors as the coping skills he has learned while being hospitalized here, and he plans to continue to practice these coping skills after discharge. Patient reports external protective factors as his love for his family, many friends, and his overall love for life and his future. Patient describes looking forward to seeing his stepdad and being with his step dad today after discharge and returning back to [place] today with his stepdad and spending the summer break from college in [place] where he plans to work. Patient describes future plans as working this summer, goal for being more independent during the upcoming school year, and finishing college and earning his college degree. Patient reports his family and friends look forward to him discharging today, and his stepfather plans to support him by assisting him looking for resources for potential medication treatment and therapy when he returns to [place] and also looking at outpatient resources in the [place] area for the patient when the patient returns for the upcoming school year. The patient's stepdad reports he agrees with patient discharging today, feels the patient has a safe discharge plan and states the patient is safe to discharge today. PENDING LABS: There were no pending labs or studies at time of discharge. CODE STATUS: There were no advanced directives on file for patient during hospitalization, and patient was full code during hospitalization. The following psychotropic medication treatment informed consent and recommendations were provided to the patient at time of discharge. Patient reports he understands, accepts, and agrees to the information that has been provided. PSYCHOTROPIC MEDICATION TREATMENT INFORMED CONSENT and RECOMMENDATIONS: Review nature of condition, diagnosis, and prognosis. Review safety plan and the importance to contact [facility] or [facility] , or go to the nearest emergency room, if ever a danger to yourself/others, or unable to care for yourself. Recommend upon discharge to establish routine medication management treatment with a psychiatric provider, establish routine therapy appointments, and follow-up with a primary care provider. Verify patient understands, accepts, and agrees to the information that has been provided. SUICIDE ASSESSMENT FIVE-STEP EVALUATION AND TRIAGE (1) RISK FACTORS: (a) Suicidal behavior: reports no history of previous attempts and no history of SI (b) Current/past psychiatric disorders: CA (c) Chu symptoms: mild anxiety (d) Family history: none (e) Precipitants/Stressors/Interpersonal: none (f) Change in treatment: discharge from psychiatric hospital (g) Access to firearms: none (2) PROTECTIVE FACTORS: (a) Internal: coping skills (b) External: family, friends, and future (3) SUICIDAL INQUIRY: (a) Ideation: none (b) Plan: none (c) Behaviors: none (d) Intent: none (4) RISK LEVEL: Low: modifiable risk factors, strong protective factors; no self -injurious or suicidal ideation. Intervention: treatment plan to reduce symptoms: medications and therapy, provided emergency/crisis numbers, follow-up plan. Patient has very supportive family and will be returning home to [place] for summer break. Patient father plans to support patient in his ongoing treatment. /[id number]/MODL MTDD
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
[2017-10-13 19:01] LABS: PLATELET COUNT 416 10^3/uL (150-400)
== END 2017-10-11 11:40 | disposition home or self-care (01) | DRG 897 ==
LOC: BBEH 16:45
PROVIDERS: ADMIT Psychiatry & Neurology Psychiatry; ATTEND Psychiatry & Neurology Psychiatry
DX: F10.129 Alcohol abuse with intoxication, unspecified (principal); Y90.8 Blood alcohol level of 240 mg/100 ml or more; F14.90 Cocaine use, unspecified, uncomplicated
CPT/HCPCS: 80305; G0480; J1630; J2060

== ENCOUNTER 2018-06-22 20:38 | Emergency (ER) | payer BC, OTHER ==
[2018-06-22] MEDS ORDERED: NS 1,000 ML IV ONE ×2 (20:49→21:03)
[2018-06-22] MEDS ORDERED: ONDANSETRON 4 MG/2 ML VIAL IVP ONE (20:49)
--- NOTE | 2018-06-22 20:49 | EDPHY ---
H & P Stated Complaint: VOMITING SINCE YEST,"CAN'T KEEP WATER DOWN" Time Seen by Provider: 06/22/18 20:49 HPI/ROS: HPI CHIEF COMPLAINT: Nausea vomiting. HISTORY OF PRESENT ILLNESS: This is a 22-year-old male, otherwise healthy has a history of depression otherwise no significant medical history presents emergency room nausea vomiting. States since 9:00 a.m. Yesterday he developed nausea and vomiting. No diarrhea. Denies any significant abdominal pain, denies chest pain or shortness of breath. At times have some burning discomfort is epigastric region. He states he tried to keep down water today but was unable to do so. He denies any blood. Denies fever. Denies any alcohol or drug use. Patient states that may be due to food-borne related illness. Past Medical History: Denies significant medical history except for depression Past Surgical History: Appendectomy, jaw surgery Social History: He denies daily use of drugs alcohol tobacco. [employer] student. Family History: Noncontributory ROS REVIEW OF SYSTEMS: 10 Systems were reviewed and negative with the exception of the elements mentioned in the history of present illness. Exam Constitutional nontoxic no acute distress triage nursing summary reviewed, vital signs reviewed, awake/alert. Eyes normal conjunctivae and sclera, EOMI, PERRLA. HENT normal inspection, atraumatic, moist mucus membranes, no epistaxis, neck supple/ no meningismus, no raccoon eyes. Respiratory clear to auscultation bilaterally, normal breath sounds, no respiratory distress, no wheezing. Cardiovascular rate normal, regular rhythm, no murmur, no edema, distal pulses normal. Gastrointestinal benign abdomen on exam soft, non-tender, no rebound, no guarding, normal bowel sounds, no distension, no pulsatile mass. Genitourinary no CVA tenderness. Musculoskeletal no midline vertebral tenderness, full range of motion, no calf swelling, no tenderness of extremities, no meningismus, good pulses, neurovascularly intact. Skin pink, warm, & dry, no rash, skin atraumatic. Neurologic awake, alert and oriented x 3, AAOx3, moves all 4 extremities equally, motor intact, sensory intact, CN II-XII intact, normal cerebellar, normal vision, normal speech. Psychiatric normal mood/affect. Heme/Lymph/Immune no lymphadenopathy. Differential Diagnosis: Differential diagnosis includes but is not limited to and in no particular order: Dehydration, electrolyte disturbance, gastritis, Bowel obstruction, appendicitis, gallbladder disease, diverticulitis, colitis, enteritis, perforated viscus, gastritis, GERD, esophagitis, urinary tract infection, pyelonephritis, kidney stones Medical Decision Making: Plan for this patient IV establishment IV fluid bolus 2 L normal saline, IV Zofran for nausea, IV Pepcid for GI upset, basic labs and re-evaluate. Re-evaluation: 2311: Patient re-evaluated this time requesting be discharged home. His abdomen is soft nontender. He is not vomiting. He tells me feels much better after IV fluids 2 L IV Zofran and IV Pepcid. His abdomen is soft nontender. He is not vomiting he p.o. Challenge well. He is requesting discharge. He reports to me feels much better. We discussed return precautions understands return emergency room if develops worsening symptoms includes abdominal pain, fever, vomiting or not doing well. He is comfortable this plan. Source: Patient - Personal History Current Tetanus Diphtheria and Acellular Pertussis (TDAP): Yes - Medical/Surgical History Hx Asthma: No Hx Chronic Respiratory Disease: No Hx Diabetes: No Hx Cardiac Disease: No Hx Renal Disease: No Hx Cirrhosis: No Hx Alcoholism: No Hx HIV/AIDS: No Hx Splenectomy or Spleen Trauma: No Other PMH: med hx-anxiety. surg-bilat hand, jaw surgery, APPY - Social History Smoking Status: Former smoker Constitutional: Initial Vital Signs Temperature (C) 36.7 C 06/22/18 20:42 Heart Rate 96 06/22/18 20:42 Respiratory Rate 16 06/22/18 20:42 Blood Pressure 127/98 H 06/22/18 20:42 O2 Sat (%) 93 06/22/18 20:42 O2 Delivery Mode Room Air Allergies/Adverse Reactions: prednisone Allergy (Severe, Verified 08/11/16 23:09) Other-Enter Comments Home Medications: Medication Instructions Recorded Promethazine HCl 25 mg PO Q6-8PRN PRN #10 tablet 06/22/18 Sertraline HCl 06/22/18 Medical Decision Making - Data Points Laboratory Results: Laboratory Results 06/22/18 20:55 06/22/18 20:55 06/22/18 06/22/18 06/22/18 22:30 20:55 20:55 WBC 14.87 10^3/uL H 10^3/uL (3.80-9.50) RBC 5.79 10^6/uL 10^6/uL (4.40-6.38) Hgb 17.5 g/dL g/dL (13.7-17.5) Hct 50.5 % % (40.0-51.0) MCV 87.2 fL fL (81.5-99.8) MCH 30.2 pg pg (27.9-34.1) MCHC 34.7 g/dL g/dL (32.4-36.7) RDW 12.7 % % (11.5-15.2) Plt Count 365 10^3/uL 10^3/uL (150-400) MPV 8.9 fL fL (8.7-11.7) Neut % (Auto) 82.0 % H % (39.3-74.2) Lymph % (Auto) 8.3 % L % (15.0-45.0) Power % (Auto) 9.3 % % (4.5-13.0) Eos % (Auto) 0.0 % L % (0.6-7.6) Baso % (Auto) 0.1 % L % (0.3-1.7) Nucleat RBC Rel Count 0.0 % % (0.0-0.2) Absolute Neuts (auto) 12.20 10^3/uL H 10^3/uL (1.70-6.50) Absolute Lymphs (auto) 1.23 10^3/uL 10^3/uL (1.00-3.00) Absolute Monos (auto) 1.38 10^3/uL H 10^3/uL (0.30-0.80) Absolute Eos (auto) 0.00 10^3/uL L 10^3/uL (0.03-0.40) Absolute Basos (auto) 0.01 10^3/uL L 10^3/uL (0.02-0.10) Absolute Nucleated RBC 0.00 10^3/uL 10^3/uL (0-0.01) Immature Gran % 0.3 % % (0.0-1.1) Immature Gran # 0.05 10^3/uL 10^3/uL (0.00-0.10) Sodium 137 mEq/L mEq/L (135-145) Potassium 4.2 mEq/L mEq/L (3.5-5.2) Chloride 101 mEq/L mEq/L (97-110) Carbon Dioxide 23 mEq/l mEq/l (22-31) Anion Gap 13 mEq/L mEq/L (6-14) BUN 16 mg/dL mg/dL (7-23) Creatinine 0.9 mg/dL mg/dL (0.7-1.3) Estimated GFR > 60 Glucose 122 mg/dL H mg/dL (70-100) Calcium 10.2 mg/dL mg/dL (8.5-10.4) Total Bilirubin 0.8 mg/dL mg/dL (0.1-1.4) Conjugated Bilirubin 0.4 mg/dL mg/dL (0.0-0.5) Unconjugated Bilirubin 0.4 mg/dL mg/dL (0.0-1.1) AST 33 IU/L IU/L (17-59) ALT 35 IU/L IU/L (21-72) Alkaline Phosphatase 77 IU/L IU/L (38-126) Total Protein 8.6 g/dL H g/dL (6.3-8.2) Albumin 5.2 g/dL H g/dL (3.5-5.0) Lipase 71 IU/L IU/L (23-300) Urine Color YELLOW Urine Appearance CLEAR Urine pH 6.0 (5.0-7.5) Ur Specific Danielson 1.031 H (1.002-1.030) Urine Protein 1+ H (NEGATIVE) Urine Ketones 1+ H (NEGATIVE) Urine Blood 2+ H (NEGATIVE) Urine Nitrate NEGATIVE (NEGATIVE) Urine Bilirubin NEGATIVE (NEGATIVE) Urine Urobilinogen NEGATIVE EU EU (0.2-1.0) Ur Leukocyte Esterase NEGATIVE (NEGATIVE) Urine RBC 15-25 /hpf H /hpf (0-3) Urine WBC 3-5 /hpf H /hpf (0-3) Ur Epithelial Cells TRACE /lpf /lpf (NONE-1+) Urine Mucus 1+ /lpf /lpf (NONE-1+) Urine Glucose NEGATIVE (NEGATIVE) Medications Given: Discontinued Medications Famotidine (Pepcid) 20 mg IVP EDNOW ONE Stop: 06/22/18 21:04 Last Admin: 06/22/18 21:07 Dose: 20 mg Sodium Chloride (Ns) 1,000 mls @ 0 mls/hr IV EDNOW ONE; Wide Open PRN Reason: Protocol Stop: 06/22/18 20:50 Last Admin: 06/22/18 21:01 Dose: 1,000 mls Sodium Chloride (Ns) 1,000 mls @ 0 mls/hr IV ONCE ONE PRN Reason: Wide Open Stop: 06/22/18 21:04 Last Admin: 06/22/18 21:05 Dose: 1,000 mls Ondansetron HCl (Zofran) 4 mg IVP EDNOW ONE Stop: 06/22/18 20:50 Last Admin: 06/22/18 21:05 Dose: 4 mg Departure - Departure Disposition: Home, Routine, Self-Care Clinical Impression: Vomiting Condition: Good Instructions: Acute Nausea and Vomiting (ED) Additional Instructions: 1. I do recommend you to bland diet over the next 24-48 hours. No spicy fatty greasy foods. 2. Return to the emergency room if he develops worsening abdominal pain, fever, vomiting 3. [place] diet Referrals: NONE *PRIMARY CARE P,. [Primary Care Provider] - As per Instructions [facility] [Clinic] - As per Instructions Prescriptions: Promethazine HCl 25 mg PO Q6-8PRN PRN #10 tablet PRN Reason: Nausea/Vomiting, Use 1st
[2018-06-22] MEDS ORDERED: FAMOTIDINE 20 MG/2 ML SDV IVP ONE (21:03)
[2018-06-22 21:12] LABS: PLATELET COUNT 365 10^3/uL (150-400)
[2018-06-22 23:30] VITALS: BP 142/66
== END 2018-06-22 23:29 | disposition home or self-care (01) ==
DX: R11.10 Vomiting, unspecified (principal); E86.9 Volume depletion, unspecified; Z87.891 Personal history of nicotine dependence
CPT/HCPCS: 96374; J2405